=== PATIENT | male | born 1955 | race Caucasian/White ===

== ENCOUNTER 2023-01-14 09:48 | Day surgery (SDC) | payer MEDICARE ==
[2023-01-14] MEDS ORDERED: Lactated Ringers 1,000 ML IV ONE (10:07)
[2023-01-14] MEDS ORDERED: Lactated Ringers 1,000 ML IV SCH (10:30)
[2023-01-14] MEDS ORDERED: CEFAZOLIN 2 GM-D5W BAG** 2 GM/50 ML ML IV SCH (10:30)
[2023-01-14 10:31] LABS: Hematocrit 43.1 % (42-50); Hemoglobin 13.8 g/dL (12.5-18.0); Mean Cell Volume 87.8 fL (78-100); Mean Corpuscular Hemoglobin 28.1 pg (26-32); Mean Platelet Volume 10.2 fL (7.5-11.0); Platelet Count 212 x10^3/uL (150-450); Red Blood Count 4.91 x10^6/uL (4.1-5.6); White Blood Count 11.9 x10^3/uL (4.0-10.5)
[2023-01-14 10:38] VITALS: RESP 16
[2023-01-14 10:44] LABS: ALBUMIN 4.1 g/dL (3.5-5.0); ANION GAP 14.1 MEQ/L (5-15); BILIRUBIN,TOTAL 0.5 mg/dL (0.2-1.3); Calcium 9.2 mg/dL (8.4-10.2); Creatinine 1 1.41 mg/dL (0.66-1.25); EST GLOMERULAR FILTRATION RATE 53.4 ML/MIN; Potassium 4.8 mmol/L (3.5-5.1); Total Protein 8.3 g/dL (6.3-8.2)
[2023-01-14 10:46] LABS: INR 0.99 (0.8-3.0); PROTIME 10.8 SECONDS (9.4-12.5); PTT 33.6 SECONDS (25.1-36.5)
[2023-01-14] MEDS ORDERED: Reglan 10 MG/2 ML IV ONE (10:52)
[2023-01-14] MEDS ORDERED: Pepcid 20 MG VIAL IV ONE (10:52)
[2023-01-14] MEDS ORDERED: Sodium Chloride 3 ML UD NEBULES IH ONE (11:09)
[2023-01-14] MEDS ORDERED: Xopenex 1.25 MG/0.5 ML UD NEBULE IH ONE (11:09)
[2023-01-14] MEDS ORDERED: Xylocaine 1% Vial 30 ML PF IJ ONE (12:23)
[2023-01-14] MEDS ORDERED: Marcaine Mpf 0.5% Vial 30 Ml ONE (12:23)
[2023-01-14] MEDS ORDERED: Ketamine HCl 50 MG/ML ONE (12:46)
[2023-01-14] MEDS ORDERED: Versed 2 MG/2 ML Injection ONE (12:46)
[2023-01-14] MEDS ORDERED: DIPRIVAN 200 MG/20 ML IV ONE (13:28)
--- NOTE | 2023-01-14 13:45 | XRAY ---
Indication: Left 2nd toe amputation. Intraoperative fluoroscopy provided for 5 seconds. 3 digital spot images submitted for interpretation demonstrates total 2nd toe amputation. Correlate with intraoperative findings/report.
[2023-01-14 14:39] VITALS: BP 158/94; PULSE 69; TEMP 97.7; O2SAT 94
--- NOTE | 2023-01-14 16:48 | XRAY ---
5 seconds of fluoroscopy was used in surgery for a left 2nd toe amputation.
--- NOTE | 2023-01-15 09:37 | OP ---
SURGERY DATE/TIME: 01/14/2023 1317 PREOPERATIVE DIAGNOSES: 1) Osteomyelitis left second digit. 2) Diabetic foot ulcer. 3) Diabetic peripheral neuropathy. 4) Smtghkb-Joghg-Onpcf. POSTOPERATIVE DIAGNOSES: 1) Osteomyelitis left second digit. 2) Diabetic foot ulcer. 3) Diabetic peripheral neuropathy. 4) Afmycnp-Qtoxh-Trhhl. PROCEDURES: Amputation of second digit left foot open. SURGEON: Ulises Redd DPM. AUTOMOTIVE INTERNET SALES MANAGER: None. ANESTHESIA: [place] with intraoperative block consisting of 10 cc of a 1:1 mixture of 1% lidocaine plain and 0.5% bupivacaine plain injected in a digital block-type fashion. HEMOSTASIS: Pressure dressing. ESTIMATED BLOOD LOSS: Approximately 5 cc. MATERIALS: 3-0 Nylon, 0.25 inch Iodoform packing. INJECTABLES: 10 cc of a 1:1 mixture of 1% lidocaine plain and 0.5% bupivacaine plain injected in a digital block-type fashion to the second digit of the left foot. INDICATION FOR SURGERY: Lior is a very pleasant 67-year-old male well known to my service for Ryppyhc-Kqazp-Cavqe and diabetic peripheral neuropathy for which he has been seeing me for nail care for an extended period of time. Recently the patient did develop an ulceration to the distal tip of the toe at the clavus after having performed a flexor tenotomy to resolve this issue. However shortly thereafter one of his toenails began to fall off and a wound developed underneath the tip of the toenail. From that standpoint, this wound aggressively spread. Cultures were obtained and oral antibiotics were attempted. Unfortunately with two chairside debridement we were unable to be successful in eradicating the osteomyelitis and as a result we are here today. At this time the patient has had two positive bone biopsies growing Pseudomonas as a bone culture as well as positive for osteomyelitis on pathology. As a result, the infection has been spreading and options were discussed with the patient. It is at this time that I recommended amputation to prevent further spread of the infection up the digit and potentially into the midfoot. The patient understands this and wishes to proceed. All risks, complications and benefits of surgical intervention were discussed at length including but not limited to infection, hematoma, seroma, possibility of delayed wound healing, nonwound healing and possible need for surgical intervention at a later date. No guarantees have been provided as to the outcome. It is with that we decided to proceed. DESCRIPTION OF PROCEDURE AND FINDINGS: The patient is brought into the OR and placed on the OR table in the supine position. At this time the patient's left lower extremity was prepped and draped in the typical sterile fashion. At this time attention was directed to the second digit of the left foot where a racket-type incision was planned utilizing skin marker. 10 cc of a 1:1 mixture of 1% lidocaine plain and 0.5% bupivacaine plain was injected in a digital block-type to the second digit. A 15 blade was utilized with full thickness incision down to the level of bone circumferentially around the base of the second digit. The second digit was then disarticulating at the level of the metatarsophalangeal joint and the remainder of the toe was sent for pathologic assessment. At this time copious amounts of sterile saline were utilized to flush the surgical site. Following this 3-0 Nylon was utilized in a simple interrupted-type fashion to coapt the distal and proximal aspect of the wound on the plantar and dorsal surface. Following this, 0.25 inch Iodoform packing that was soaked in Iodine was then placed into the deficit. Following this, a dressing consisting of Betadine, Adaptic, 4x4, Kerlix and KUNAL was applied to the patient's left lower extremity. Following this, the patient was reversed from anesthesia and returned to the postoperative anesthesia care unit with vital signs stable and vascular status intact. The patient handled the anesthesia as well as the procedure without significant complication. Postoperative orders as indicated in the patient's discharge chart.
== END 2023-01-14 14:45 | disposition home or self-care (01) ==
LOC: SDC 09:48
PROVIDERS: ATTEND Podiatrist Foot & Ankle Surgery
DX: M86.9 Osteomyelitis, unspecified (principal); E11.621 Type 2 diabetes mellitus with foot ulcer; E11.42 Type 2 diabetes mellitus with diabetic polyneuropathy; G60.0 Hereditary motor and sensory neuropathy
CPT/HCPCS: 28820; 36415; 73630; 76000; 80053; 82947; 85027; 85610; 85730; 87070; 87075; 94640; J0690; J2001; J2250; J2704; J7614; A9270-GY

== ENCOUNTER 2023-01-17 07:17 | Day surgery (SDC) | payer MEDICARE ==
[~2023-01-17 07:17] MED LIST: Marcaine Mpf 0.5% Vial 30 Ml ONE; Xylocaine 1% Vial 30 ML PF IJ ONE
[2023-01-17] MEDS ORDERED: Lactated Ringers 1,000 ML IV SCH (08:30)
[2023-01-17 08:34] VITALS: RESP 18
[2023-01-17 11:39] VITALS: BP 149/82; PULSE 71; TEMP 97.5; O2SAT 97
[2023-01-17] MEDS ORDERED: CEFAZOLIN 2 GM-D5W BAG** 2 GM/50 ML ML IV SCH (14:00)
--- NOTE | 2023-01-17 15:29 | OP ---
SURGERY DATE/TIME: 01/17/2023 1045 PREOPERATIVE DIAGNOSES: 1) Diabetic foot wound. 2) Peripheral neuropathy. 3) Osteomyelitis. 4) Oavpfus-Cfvcmh-Vmmyd. 5) Congenital motor sensory neuropathy. POSTOPERATIVE DIAGNOSES: 1) Diabetic foot wound. 2) Peripheral neuropathy. 3) Osteomyelitis. 4) Ycxtzsy-Vhplqu-Piowc. 5) Congenital motor sensory neuropathy. PROCEDURE: Repeat wash out with delayed complex closure. SURGEON: Ulises Redd DPM. DESIGN MAINTENANCE ENGINEER: None. ANESTHESIA: Local. HEMOSTASIS: Pressure dressing. ESTIMATED BLOOD LOSS: Approximately 5 cc. MATERIALS: 4-0 Monocryl, 3-0 Nylon. INJECTABLES: 10 cc of a 1:1 mixture of 1% lidocaine plain and 0.5% bupivacaine plain injected in a digital block-type fashion. INDICATION FOR SURGERY: This is a staged procedure for Liro Martinez for osteomyelitis of the second digit of the left foot. The patient subsequently had amputation however some residual signs of cellulitis were at the base of the second toe. Decision to proceed with leaving the wound open at this time and proceed with delayed primary closure. The patient was inspected yesterday and deemed to be adequate for closure with no residual signs of infection. At this time the patient understand all risks, complications and benefits of surgical intervention at this time including but not limited to infection, hematoma, seroma, possibility of delayed wound healing, nonwound healing and possible surgical intervention at a later date. No guarantees were provided as to the outcome. Plenty of time was allowed for the patient to ask questions which were answered to his apparent satisfaction. It is with that we decided to proceed. DESCRIPTION OF PROCEDURE AND FINDINGS: The patient is brought into the OR and placed on the OR table in the supine position. At this time under aseptic technique a digital block was carried out utilizing 10 cc of a 1:1 mixture of 1% lidocaine plain and 0.5% bupivacaine plain injected into the left foot. Following this the left foot was prepped and draped in the typical sterile fashion and lowered onto the surgical field. At this time stitches were removed from the surgical site. The wound was inspected and any necrotic or nonviable edges were removed. A 15 blade was utilized to incise the edge and healthy bleeding edges were seen at all sites encouraging for healing. At this time copious amounts of sterile saline were utilized to flush the surgical site. Following this, 4-0 Monocryl was utilized to coapt the subcutaneous edges in simple interrupted buried-type fashion and then 3-0 Nylon utilized to coapt the skin in everted-type fashion utilizing horizontal mattress. A dressing consisting of Betadine, Adaptic, 4x4, Kerlix and KUNAL was applied to the patients left lower extremity. The patient then was returned to the postoperative anesthesia care unit with vital signs stable and vascular status intact. The patient handled the anesthesia as well as the procedure without significant complication. Postoperative orders as indicated in the patient's discharge chart.
== END 2023-01-17 11:40 | disposition home or self-care (01) ==
LOC: SDC 07:17
PROVIDERS: ATTEND Podiatrist Foot & Ankle Surgery
DX: E11.621 Type 2 diabetes mellitus with foot ulcer (principal); E11.42 Type 2 diabetes mellitus with diabetic polyneuropathy; M86.9 Osteomyelitis, unspecified; G60.0 Hereditary motor and sensory neuropathy; G62.9 Polyneuropathy, unspecified
CPT/HCPCS: 13160; 82947; J0690; J2001

== ENCOUNTER 2024-04-20 05:50 | Day surgery (SDC) | payer MEDICARE ==
[2024-04-20] MEDS: Lactated Ringers 1,000 ML IV SCH (06:16)
[2024-04-20] MEDS: Reglan 10 MG/2 ML IV ONE (06:17)
[2024-04-20] MEDS: Pepcid 20 MG VIAL IV ONE (06:17)
[2024-04-20] MEDS: CEFAZOLIN 2 GM/100 ML NaCl 2 GM/100 ML IVPB IV SCH (06:17)
[2024-04-20 06:32] LABS: Absolute Neutrophil Ct (ANC) 6.77 x10^3/uL (1.78-5.38); BASOPHIL % 0.7 % (0.2-1.2); Basophil (Absolute #) 0.07 x10^3/uL (0.01-0.08); Eosinophil % 4.6 % (0.8-7.0); Eosinophil (Absolute #) 0.47 x10^3/uL (0.04-0.54); Hematocrit 39.8 % (40.1-51.0); Hemoglobin 13.2 g/dL (13.7-17.5); IMMATURE GRAN # 0.03 x10^3u/L (0.001-0.031); IMMATURE GRAN % 0.3 % (0.001-0.429); Lymphocytes % 18.7 % (21.8-53.1); Mean Cell Volume 83.6 fL (79.0-92.2); Mean Corpuscular Hemoglobin 27.7 pg (25.7-32.2); Mean Corpuscular Hgb Concent. 33.2 g/dL (32.3-36.5); Mean Platelet Volume 11.3 fL (9.4-12.4); Monocyte (Absolute #) 0.93 x10^3/uL (0.30-0.82); Monocytes % 9.1 % (5.3-12.2); Neutrophil % 66.6 % (34.0-67.9); Platelet Count 138 x10^3/uL (163-337); Red Blood Count 4.76 x10^6/uL (4.63-6.08); Red Cell Distribution Width 14.7 % (11.6-14.4); White Blood Count 10.2 x10^3/uL (4.23-9.07)
[2024-04-20] MEDS ORDERED: Marcaine Mpf 0.5% Vial 30 Ml ONE (06:33)
[2024-04-20] MEDS ORDERED: Xylocaine 1% Vial 30 ML PF IJ ONE (06:33)
[2024-04-20] MEDS ORDERED: DUONEB 0.5-3 MG/3 ml Neb IH ONE (06:38)
[2024-04-20] MEDS: DUONEB 0.5-3 MG/3 ml Neb IH ONE (06:44)
[2024-04-20] MEDS ORDERED: Versed 2 MG/2 ML Injection ONE (06:51)
[2024-04-20] MEDS ORDERED: DIPRIVAN 200 MG/20 ML IV ONE (06:51)
[2024-04-20] MEDS ORDERED: Ketamine HCl 50 MG/ML ONE (06:51)
[2024-04-20 06:58] LABS: ANION GAP 9.2 MEQ/L (5-15); BILIRUBIN,TOTAL 0.5 mg/dL (0.2-1.3); Calcium 9.1 mg/dL (8.4-10.2); Creatinine 1 1.81 mg/dL (0.66-1.25); EST GLOMERULAR FILTRATION RATE 40.5 ML/MIN; Potassium 4.3 mmol/L (3.5-5.1); Total Protein 7.4 g/dL (6.3-8.2)
[2024-04-20 07:02] LABS: Slide Review 1 YES
[2024-04-20] MEDS ORDERED: SUBLIMAZE 100 MCG/2 ML ONE (07:31)
[2024-04-20 08:51] VITALS: BP 129/69; PULSE 51; RESP 18; TEMP 98.1; O2SAT 99
--- NOTE | 2024-04-21 11:57 | OP ---
SURGERY DATE/TIME: 04/20/2024 [id number] PREOPERATIVE DIAGNOSES: 1) Osteomyelitis, left 3rd digit. 2) Diabetic peripheral neuropathy. 3) History of diabetic foot ulcer. 4) History of amputation, left foot. POSTOPERATIVE DIAGNOSES: 1) Osteomyelitis, left 3rd digit. 2) Diabetic peripheral neuropathy. 3) History of diabetic foot ulcer. 4) History of amputation, left foot. PROCEDURE: Amputation of 3rd digit with disarticulation at level of metatarsophalangeal joint. SURGEON: Ulises Redd DPM FOREIGN EXCHANGE STUDENT COORDINATOR: Jose Alfredo Wynne NP ANESTHESIA: Monitored anesthesia care with intraoperative local consisting of 10 mL of 1:1 mixture of 1% lidocaine plain and 0.5% bupivacaine plain injected in a digital block-type fashion. HEMOSTASIS: Pressure dressing. ESTIMATED BLOOD LOSS: Less than 5 mL. MATERIALS: 4-0 Monocryl, 3-0 nylon. INDICATIONS: The patient is a very pleasant 68-year-old male very well known to my service for diabetic foot ulcers with osteomyelitis. The patient at this time had presented approximately 2 weeks ago with a significant deviation of the left 3rd digit medially at the level of the proximal interphalangeal joint. On inspection, there was a callus, and the callus was debrided demonstrating a wound that had a positive probe to bone. The patient was sent for x-ray showing some destructive changes. Advanced imaging was ordered in the form of a technetium-99 bone scan which demonstrated indications of osteomyelitis. At this time, options were discussed with the patient in regard to treatment, in regard to treating with IV antibiotics for 6 to 8 weeks versus an amputation. The patient at this time had deliberated with his family that he would like to proceed with the amputation. All risks, complications, and benefits of surgical intervention at this time were discussed with the patient including but not limited to infection, hematoma, seroma, possibility of delayed wound healing, non-wound healing, possibility of failure of surgical intervention, and possible need for further surgical intervention at a later date. No guarantees were provided as to the outcome of surgical intervention at this time. Plenty of time was allowed for the patient to ask questions which were answered to his apparent satisfaction. It is at this time we decided to proceed. DESCRIPTION OF PROCEDURE AND FINDINGS: The patient was brought into the operating room and placed on the operating room table in the supine position. At this time, monitored anesthesia care was administered until the patient was adequately sedated. Once the patient was sedated, the left lower extremity was prepped and draped in the typical sterile fashion and lowered onto the surgical field. A 10 mL block was provided to the left 3rd digit consisting of a 1:1 mixture of 1% lidocaine plain and 0.5% bupivacaine plain. Once the injection had time to take effect, a dorsal to plantar racket incision was made utilizing a 10-blade going full thickness down to the level of the metatarsophalangeal joint and perpendicular to the skin margins, resecting the toe at the level of the metatarsophalangeal joint. The toe was handed off the field at this time for pathological and microbiological assessment. From that standpoint, 1000 mL of Bactisure was utilized to flush the surgical site and 500 mL of sodium chloride. Following this, skin edges were resected, making sure no dog-ears remained and minimal tension would be appreciated once sutured. Then, 4-0 Monocryl was then utilized to coapt the subcutaneous tissue in a simple buried interrupted-type fashion and then 3-0 nylon was utilized in a horizontal mattress-type fashion to margarita the skin edges. A dressing consisting of Betadine, Adaptic, 4 x 4, Kerlix, ABD, and Kory was applied to the patient's left lower extremity. The patient was then reversed from anesthesia and returned to the postoperative anesthesia care unit with vital signs stable and vascular status intact. The patient handled the anesthesia as well as the procedure without significant complication. Postoperative orders as indicated in the patient's discharge notes.
== END 2024-04-20 09:00 | disposition home or self-care (01) ==
LOC: SDC 05:50
PROVIDERS: ATTEND Podiatrist Foot & Ankle Surgery
DX: M86.9 Osteomyelitis, unspecified (principal); E11.42 Type 2 diabetes mellitus with diabetic polyneuropathy; E11.621 Type 2 diabetes mellitus with foot ulcer; Z89.422 Acquired absence of other left toe(s)
CPT/HCPCS: 28820; 36415; 80053; 82947; 85025; 93005; 94640; A6260; J0690; J2250; J2704; J3010; A9270-GY